=== PATIENT | male | born 1965 | race Caucasian/White ===

== ENCOUNTER 2016-12-28 14:18 | Inpatient (IN) | payer BC ==
[~2016-12-28] VITALS: Ht 190.5 cm; Wt 124.5 kg
--- NOTE | ~2016-12-28 | PR ---
[place], [place] PROGRESS NOTE [id number] UN[facility] #: [id number] ROOM: 428 DOCTOR: ROSA HIGGINS MD BIRTHDATE: [birth year] DOS: 12/30/2016 OBJECTIVE: VITAL SIGNS: Blood pressure 114/67, heart rate of 64 beats per minute, breathing 20 times per minute, temperature 98.4 degrees Fahrenheit. GENERAL: Morbid obesity. Generalized weakness. HEENT AND NECK: Exam within normal limits. CARDIOVASCULAR SYSTEM: Heart rate is regular in rate and rhythm. S1 and S2 normally audible. LUNGS: Clear to auscultation. ABDOMEN: Soft, nontender. No obvious organomegaly. Bowel sounds are present. EXTREMITIES: Without significant cyanosis or edema. IMPRESSION: 1. The patient with acute upper gastrointestinal bleed with anastomotic ulcer at the site of gastric bypass surgery for weight loss. The patient is being treated with acid blockers. 2. Acute blood loss anemia, status post blood transfusion, hemoglobin is at 8.8 and is being monitored. 3. Chronic back pains. 4. The patient going for colonoscopy by Dr. Chan tomorrow for further evaluation. ROSA HIGIGNS MD CM:SOLEDAD 190 2 ROSA HIGGINS MD 12/31/16132 interface
--- NOTE | ~2016-12-28 | WRIGHTHP ---
[place], [place] PATIENT HISTORY AND PHYSICAL EXAM NAME: FREDDY BYRNE [facility] #: [id number] UNIT #: [id number] ROOM: 407 DOCTOR: ROSA HIGGINS MD BIRTHDATE: [birth year] DOS: 12/28/2016 HISTORY OF PRESENT ILLNESS: 1. The patient is a 51-year-old gentleman with a past medical history of morbid obesity with gastric bypass surgery in 2011. 2. History of cholecystectomy. The patient presented to [facility] with increasing lower abdominal pains for a few days and he also noticed black colored stools and the lower abdominal pains are chronic for him, but they were getting worse for last 4-5 days before he came to the hospital. The patient says the pains improve when he moves his bowels. No chest pain, no shortness of breath, no fever or chills. The patient says he has chronic history of vomiting off and on. The patient was taken for EGD by Dr. Chan this morning and he was found to have a large anastomotic ulcer, probable site of bleeding. The patient is still having lower abdominal pains that are making him uncomfortable and he also says he has a long history of hemorrhoids which he would like treated. No complaints of any chest pain, shortness of breath. No other GI or urinary symptoms. REVIEW OF SYSTEMS: LUNGS: No increasing shortness of breath or wheezing. GASTROINTESTINAL: Chronic constipation, chronic recurrent vomiting on daily basis, chronic constipation and chronic complains of hemorrhoids and pain with bowel movement. CARDIOVASCULAR SYSTEM: No palpitations or chest pains. SOCIAL HISTORY: Denies smoking cigarettes, alcohol and drug abuse. FAMILY HISTORY: Noncontributory. HOME MEDICATIONS: The patient was apparently not taking any medications at home. ALLERGIES: No known drug allergies. PHYSICAL EXAMINATION: GENERAL: The patient is obese. VITAL SIGNS: Blood pressure 101/63, heart rate of 68 beats per minute, breathing 20 times per minute, temperature 98 degrees Fahrenheit. HEENT AND NECK: Extraocular movements are intact. Sclerae are anicteric. Oral mucosa is moist and clean. No obvious facial weakness. Neck is supple without any lymphadenopathy. No thyromegaly. No JVD. No carotid arterial bruits. LUNGS: Clear to auscultation. No wheezing. No rhonchi. CARDIOVASCULAR SYSTEM: Heart rate is regular in rate and rhythm. S1 and S2 normally audible. No significant murmur or any other abnormal cardiac sounds. ABDOMEN: Obesity. EXTREMITIES: Without significant cyanosis or edema. Warm to touch. CENTRAL NERVOUS SYSTEM: Alert and oriented x 3. Cranial nerves II-XII are intact. Speech is normal. The patient is able to move all extremities. Normal muscle strength. Deep tendon reflexes are equal on both sides. Plantars were downgoing. [place], [place] PATIENT HISTORY AND PHYSICAL EXAM [id number] UNIT #: [id number] ROOM: [facility] DOCTOR: RONALDO CHOUDHARY,ROSA Adams BIRTHDATE: [birth year] LABORATORY DATA: Hemoglobin of 7.3 dropped from 8.8 at admission. Normal serum electrolytes, bilirubin, liver enzymes. IMPRESSION: 1. The patient with acute upper gastrointestinal bleed with a large anastomotic ulcer where he had gastric bypass surgery for weight loss. I will transfuse patient with 2 units of packed cells since he is dropping hemoglobin and continue to monitor his H and H. The patient is status post EGD this morning. 2. Acute over chronic low back pains and chronic constipation for which I will start him on laxatives. 3. Hemorrhoidal pains for which patient is being started on Anusol suppositories. 4. Progressive blood loss anemia with hemoglobin has dropped to 7.3 as compared to 8.8 at admission. I will transfuse him with 2 units of packed cells. ROSA HIGGINS MD CM:HISPHYS:PATIENT HISTORY AND PHYSICAL EXAMINATION [id number] ROSA HIGGINS MD 12/29/16 1115 interface
--- NOTE | ~2016-12-28 | O ---
[place], [place] OPERATIVE NOTE NAME: FREDDY BYRNE UNIT #: [id number] ROOM: 428 DOCTOR: LIDIA CHOUDHARYLOGAN BIRTHDATE: [birth year] DATE: 12/29/16 CHIEF COMPLAINT: The patient is a 51-year-old who was presented with chief complaint of epigastric abdominal pain, right lower quadrant pain. The patient with history of gastric bypass, anemia of severe degree, and drop in H and H to hemoglobin of 7 and hematocrit of 27 microcytic indices. PROCEDURE: Today's procedure part of investigation is panendoscopy. PREMEDICATION: Versed and Diprivan. SCOPE: Olympus forward-viewing gastroscope Q10 video. REPORT: After putting the patient in the left lateral position and after application of lubricant to the scope, the scope was introduced. Thereafter, under direct visualization, I advanced through the length of esophagus without difficulty. Small hiatal hernia was noticed. Gastric pouch was identified anastomotic site, status post gastric bypass was noticed on the small bowel portion of the anastomosis. There was a large scarred non-actively bleeding ulcer was identified. This was biopsied from the margin, photographed. The rest of the small bowel appears to be patent and benign. The patient extubated, tolerated procedure well. IMPRESSION: Large anastomotic site ulcer, status post biopsy, status post gastric bypass. PLAN AND DISCUSSION: We are going to proceed with Protonix 40 mg daily as an outpatient, and we are going to continue with Carafate 1 gram before meals and at bedtime meals. Labs and records have been reviewed. His CT scan of the abdomen has been reviewed. There is no acute pathology reported. The lung bases clear with liver normal. He is status post cholecystectomy, status post gastric bypass. Pancreas, spleen, adrenal gland all within normal limits. There is no bowel wall thickening, appendix not visualized. No inflammatory process. No fluids. Lymph nodes are not enlarged. This patient also is complaining of right lower quadrant pain. We will continue with his upper endoscopy findings management. On the other hand, we are going to keep in mind that he may need a colonoscopy for his right lower quadrant complaints as well. This is going to be addressed via colonoscopy. [place], [place] OPERATIVE NOTE NAME: FREDDY BYRNE UNIT #: [id number] ROOM: 428 DOCTOR: LOGAN MURILLO MD BIRTHDATE: [birth year] LOGAN MURILLO MD CM:OPRECORD:OPERATIVE NOTE 1419 [id number] LOGAN MURILLO MD 01/03/17 0920 EARL KU.R
--- NOTE | ~2016-12-28 | DS ---
[place], [place] DISCHARGE SUMMARY NAME: FREDDY BYRNE UNIT #: [id number] ROOM: 428 DOCTOR: ROSA HIGGINS MD BIRTHDATE: [birth year] DOS: 01/01/2017 EXPECTED DATE OF DISCHARGE: 01/01/2017. DISCHARGE DIAGNOSES: 1. Acute upper gastrointestinal bleed from anastomotic ulcer in the stomach related to previous gastric bypass surgery in 2011. 2. 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 3. Previous history of cholecystectomy. 4. Morbid obesity. 5. Chronic constipation. 6. History of hemorrhoids with chronic pain. HOSPITAL COURSE: The patient presented to the Emergency Department with complaints of lower abdominal pain for a few days and also noticed black colored stools which were getting worse for 4-5 days. The patient was found to have blood loss anemia and was given blood transfusion as well as taken for EGD and later on colonoscopy. The patient's EGD showed anastomotic ulcer at the gastric bypass surgery site and a biopsy was performed. Later on patient was taken for colonoscopy by Dr. Chan where rectal fold was found, but patient continues to have red blood in the stool now and continues to have lower abdominal and right lower quadrant pain. The patient's hemoglobin had improved after blood transfusion and staying stable around 8.6-9, but because of continued GI bleed I would like to transfer him to specialized GI surgeons at [facility] for further evaluation and management. The patient and his are agreeable. A CT of the abdomen and pelvis showed mild nonspecific mucosal thickening of the rectum, questionable proctitis and splenic enlargement. DISCHARGE MANAGEMENT: The patient on infusion with normal saline. He is also on Anusol-HC suppositories twice a day, Colace 200 mg a day, Carafate 1 gram a.c. and at bedtime, MiraLax 17 g twice a day, Protonix 40 mg IV twice a day, hydromorphone IV every 6 hours 1 mg p.r.n. for pain. [place], [place] DISCHARGE SUMMARY NAME: FREDDY BYRNE UNIT #: [id number] ROOM: 428 DOCTOR: ROSA HIGGINS MD BIRTHDATE: [birth year] ROSA HIGGINS MD CM:ANDREE 07 43 ROSA HIGGINS MD 01/01/171944 interface
--- NOTE | ~2016-12-28 | PN ---
[place], [place] PROGRESS NOTE [id number] UN[facility] #: [id number] ROOM: 428 DOCTOR: IZABELA HAYES MD BIRTHDATE: [birth year] DATE: 12/31/16 INTERVAL NOTE CHIEF COMPLAINT: "Morning." SUMMARY OF THE VISIT: The patient was interviewed or attempted to be interviewed as he was resting in a Dian chair in the dining area. He was rather somnolent on approach and I was able to awaken him enough for him to mouth the words morning, but he nodded back off into sleep thereafter. Nurses report that he had a horrible night, sundowning horribly, becoming verbally and physically aggressive requiring 2 p.r.n. interventions with intramuscular Ativan. The first intramuscular injection did little to nothing, but by the time he had the 2nd, it did decrease his agitation. Nurses report that he also tends to respond more favorably to women than he does to men and with men, he becomes much more confrontational and verbally and physically combative. This morning, my examination is limited due to the somnolence left over from the Ativan that he received last night. MENTAL STATUS: It is limited due to the fact that he is somewhat somnolent. He is at least alert and oriented to self. I could not assess much further because of that. PLAN: His valproic acid level is therapeutic at 93.4, so I will maintain the current level. I will go ahead and increase Exelon patch from 9.5 mg daily to 13.3 mg daily. His Namenda has been discontinued due to the possibility of it causing confusion, so I will continue to monitor for improvement. We will monitor to see if his sundowning continues to be problematic and if it does, we will address this accordingly with a medicine at night. He may require atypical antipsychotic to decrease the overall combativeness and at this point, I would strongly recommend the family that he is not placed at home, but rather placed into a long-term care facility to further monitor and assess his behavior. We will continue to engage him in individual and hummel milieu activity, returning to the least restrictive environment when stable. IZABELA HAYES MD CM:PNTRANS 0742 1416 IZABELA HAYES MD 01/03/17 1417 EARL KU.SHELBIR
--- NOTE | ~2016-12-28 | O ---
[place], [place] OPERATIVE NOTE NAME: FREDDY BYRNE UNIT #: [id number] ROOM: 428 DOCTOR: LOGAN MURILLO MD BIRTHDATE: [birth year] DOS: GASTROENDOSCOPIC REPORT INDICATIONS: A 51-year-old patient who has presented with chief complaint of GI bleed, undergoing investigation. The patient is status post gastric bypass with large anastomotic ulcer. The patient continued to have bleed and transfusion. He has been complaining of rectal bleed as well. Left lower quadrant pain. PROCEDURE: Today's procedure part of investigation is colonoscopy plus biopsy. PREMEDICATION: Versed and Diprivan. SCOPE: Olympus forward-viewing colonoscope 10L video. REPORT: After putting the patient in the left lateral position and after application of lubricant to rectal pouch and digital examination, the scope was introduced. Thereafter, under direct visualization, I advanced through the length of colon without difficulty. Base of the cecum explored, appendiceal orifice identified, and ileocecal valve was defined. GI reflection of the scope reveals stretched ulcerated rectal fold, which is a dentate fold. Photographed, biopsies from the tip of it was obtained. The patient extubated, tolerated the procedure well. IMPRESSION: Hypertrophied rectal fold with ulceration status post biopsy. PLAN AND DISCUSSION: This patient expects to have next couple of days some blood in his stool, is going to be advised not to be concerned about this. However, as far as management of the hypertrophic rectal fold, he may need transanal resection of this fold if it becomes nuisance concern for him. At the present time, Anusol-HC suppository one b.i.d. was reduced to overstretched size. Thank you very much indeed. Sincerely, [place], [place] OPERATIVE NOTE NAME: FREDDY BYRNE UNIT #: [id number] ROOM: 428 DOCTOR: LOGAN MURILLO MD BIRTHDATE: [birth year] LOGAN MURILLO MD CM:OPRECORD:OPERATIVE NOTE 1719 11 LOGAN MURILLO MD 12/31/16 213 interface
--- NOTE | ~2016-12-28 | CON ---
[place], [place] REPORT OF CONSULTATION NAME: FREDDY BYRNE UNIT #: [id number] ROOM: 428 DOCTOR: LOGAN MURILLO MD BIRTHDATE: [birth year] DOS: 12/28/2016 HISTORY OF PRESENT ILLNESS: A 51-year-old patient who presented with chief complaint of right lower quadrant pain, epigastric distress, history of gastric bypass, anemia, undergoing investigation. PAST MEDICAL HISTORY: Status post gastric bypass. PAST SURGICAL HISTORY: Status post cholecystectomy, colonoscopies, gastroscope, bypass, EGDs. SOCIAL HISTORY: Nonsmoker, nonalcohol consumer. FAMILY HISTORY: Noncontributory. ALLERGIES: No known. MEDICATIONS: List reviewed. REVIEW OF SYSTEMS: In general: HEENT: Denies double vision, blurred vision. RESPIRATORY: Denies shortness of breath. CARDIOVASCULAR: Denies chest pain. DIGESTIVE SYSTEM: Epigastric pain, right lower quadrant pain. PHYSICAL EXAMINATION: VITAL SIGNS: Stable. HEENT: Head normocephalic, nontraumatic. Mouth and buccal mucosa benign. NECK: Supple, no thyromegaly, no cervical lymphadenopathy. CHEST: Symmetric anatomy, equal expansion. No wheeze. No rhonchi. HEART: Normal sinus rhythm, no gallop, no murmur. ABDOMEN: Soft. No hepato-organomegaly. Bowel sounds present. EXTREMITIES: No cyanosis. No pedal edema. NEUROLOGIC: Alert, oriented to time, place and person. LABORATORY DATA: Reviewed. H and H of 8 and 33 and microcytic indices were identified. Repeat H and H dropped to 7 and 27, microcytic indices recognized. CT scan of the abdomen and pelvis was done. No acute inflammatory process or obstruction was seen. Urinalysis normal. Comprehensive metabolic panel: GFR greater than 60. BUN and creatinine 7 and 1.2 were noticed. Electrolytes are balanced. Liver function tests normal. Lipase normal. CBC differential was reassessed. IMPRESSION AND DISCUSSION: Status post gastric bypass. Status post drop in hemoglobin and hematocrit, microcytic indices, abdominal pain. We are going to organize endoscopic assessment of upper gastrointestinal tract, ruling out anastomotic ulcer. We are going to transfuse for the hemoglobin and hematocrit of 7 and 27, and we are going to reassess should the esophagogastroduodenoscopy not be productive as far as defining the pathology, then we are going to organize in future a colonoscopy. [place], [place] REPORT OF CONSULTATION NAME: FREDDY BYRNE UNIT #: [id number] ROOM: 428 DOCTOR: LIDIA CHOUDHARY,LOGAN BIRTHDATE: [birth year] LOGAN MURILLO MD CM:CONSTR:REPORT OF CONSULTATION 0742 12/29/16 1417 interface
--- NOTE | ~2016-12-28 | OP ---
[place], [place] OUTPATIENT NOTE NAME: FREDDY BYRNE [facility] #: [id number] UNIT #: [id number] ROOM: 428 DOCTOR: LIDIA CHOUDHARYLOGAN BIRTHDATE: [birth year] DATE: 12/29/16 CHIEF COMPLAINT: The patient is a 51-year-old who was presented with chief complaint of epigastric abdominal pain, right lower quadrant pain. The patient with history of gastric bypass, anemia of severe degree, and drop in H and H to hemoglobin of 7 and hematocrit of 27 microcytic indices. PROCEDURE: Today's procedure part of investigation is panendoscopy. PREMEDICATION: Versed and Diprivan. SCOPE: Olympus forward-viewing gastroscope Q10 video. REPORT: After putting the patient in the left lateral position and after application of lubricant to the scope, the scope was introduced. Thereafter, under direct visualization, I advanced through the length of esophagus without difficulty. Small hiatal hernia was noticed. Gastric pouch was identified anastomotic site, status post gastric bypass was noticed on the small bowel portion of the anastomosis. There was a large scarred non-actively bleeding ulcer was identified. This was biopsied from the margin, photographed. The rest of the small bowel appears to be patent and benign. The patient extubated, tolerated procedure well. IMPRESSION: Large anastomotic site ulcer, status post biopsy, status post gastric bypass. PLAN AND DISCUSSION: We are going to proceed with Protonix 40 mg daily as an outpatient, and we are going to continue with Carafate 1 gram before meals and at bedtime meals. Labs and records have been reviewed. His CT scan of the abdomen has been reviewed. There is no acute pathology reported. The lung bases clear with liver normal. He is status post cholecystectomy, status post gastric bypass. Pancreas, spleen, adrenal gland all within normal limits. There is no bowel wall thickening, appendix not visualized. No inflammatory process. No fluids. Lymph nodes are not enlarged. This patient also is complaining of right lower quadrant pain. We will continue with his upper endoscopy findings management. On the other hand, we are going to keep in mind that he may need a colonoscopy for his right lower quadrant complaints as well. This is going to be addressed via colonoscopy. [place], [place] OUTPATIENT NOTE NAME: FREDDY BYRNE UNIT #: [id number] ROOM: 428 DOCTOR: LOGAN MURILLO MD BIRTHDATE: [birth year] LOGAN MURILLO MD CM:OUTNOTE:OUTPATIENT NOTE 5 5 LOGAN MURILLO MD 01/03/17 0920 EARL KU.R
[~2016-12-28 14:18] MED LIST: MOTRIN800 MG PO; ULTRAM50 MG PO
[2016-12-28 15:01] VITALS: BP 136/86
[2016-12-28 16:00] VITALS: BP 115/63
[2016-12-28 16:14] LABS: BASO # 0.1 10*3/uL (0.0-0.1); EOS # 0.2 10*3/uL (0.0-0.4); EOS % 2.4 % (1.0-4.0); HEMOGLOBIN 8.8 g/dl (14.0-18.0); LYMPH # 1.7 10*3/uL (1.3-4.4); LYMPH % 24.5 % (27.0-41.0); MEAN CELL VOLUME 66.5 fl (80.0-94.0); MEAN CORPUSCULAR HGB 17.7 pg (27.0-31.0); MEAN CORPUSCULAR HGB CONC 26.7 g/dl (33.0-37.0); MEAN PLATELET VOLUME 8.7 fl (9.6-12.3); MONO # 0.5 10*3/uL (0.1-1.0); MONO % 7.3 % (3.0-9.0); NEUT # 4.5 10*3/uL (2.3-7.9); NEUT % 64.5 % (47.0-73.0); PLATELET COUNT AUTOMATED 408 10*3/uL (130-400); RED BLOOD COUNT 4.96 10*6/uL (4.50-5.90); RED CELL DISTRI WIDTH 16.3 % (0-14.5)
[2016-12-28 16:32] LABS: ALBUMIN 3.8 gm/dl (3.1-4.5); ALKALINE PHOSPHATASE 97 U/L (45-117); BILIRUBIN, TOTAL 0.4 mg/dl (0.2-1.0); BUN 7 mg/dl (7-24); CARBON DIOXIDE 27 mmol/L (21-32); CHLORIDE 108 mmol/L (98-107); EST GLOM FILT AFRICAN AMERICAN > 60 ml/min; GLUCOSE 90 mg/dL (65-99); POTASSIUM 3.9 mmol/L (3.5-5.1); SGOT/AST 11 IU/L (3-35); SGPT/ALT 12 U/L (12-78); SODIUM 142 mmol/L (136-145); TOTAL PROTEIN 7.7 gm/dL (6.4-8.2)
[2016-12-28 17:25] LABS: BILIRUBIN NEGATIVE (NEGATIVE); BLOOD NEGATIVE (NEGATIVE); CLARITY SL CLOUDY (CLEAR); COLOR YELLOW (YELLOW); GLUCOSE NEGATIVE (NEGATIVE); KETONE NEGATIVE (NEGATIVE); LEUKO ESTERASE NEGATIVE (NEGATIVE); NITRITE NEGATIVE (NEGATIVE); PROTEIN NEGATIVE (NEGATIVE); SPECIFIC GRAVITY 1.015 (1.005-1.030); UROBILINOGEN 0.2 E.U./dl (0.2-1.0)
[2016-12-28 17:33] LABS: BACTERIA TRACE; URINE REFLEX COMMENT NO (NO); WBC 0-2 wbc/hpf (0-5)
[2016-12-28 20:00] VITALS: BP 115/63
[2016-12-28 20:15] VITALS: BP 115/63
[2016-12-29] VITALS (15 sets, daily range): BP systolic 73–158; BP diastolic 31–82
[2016-12-29 06:59] LABS: BASO # 0.1 10*3/uL (0.0-0.1); EOS # 0.2 10*3/uL (0.0-0.4); EOS % 4.3 % (1.0-4.0); HEMATOCRIT 27.4 % (42.0-52.0); HEMOGLOBIN 7.3 g/dl (14.0-18.0); LYMPH # 1.7 10*3/uL (1.3-4.4); LYMPH % 35.5 % (27.0-41.0); MEAN CELL VOLUME 67.5 fl (80.0-94.0); MEAN CORPUSCULAR HGB CONC 26.6 g/dl (33.0-37.0); MEAN PLATELET VOLUME 8.3 fl (9.6-12.3); MONO # 0.4 10*3/uL (0.1-1.0); MONO % 8.7 % (3.0-9.0); NEUT # 2.4 10*3/uL (2.3-7.9); NEUT % 49.9 % (47.0-73.0); PLATELET COUNT AUTOMATED 292 10*3/uL (130-400); RED BLOOD COUNT 4.06 10*6/uL (4.50-5.90); RED CELL DISTRI WIDTH 16.2 % (0-14.5); WHITE BLOOD COUNT 4.8 10*3/uL (4.8-10.8)
[2016-12-30] VITALS: BP 132/75
[2016-12-30 06:47] LABS: BASO % 0.6 % (0.0-1.0); EOS # 0.4 10*3/uL (0.0-0.4); EOS % 7.5 % (1.0-4.0); HEMATOCRIT 30.8 % (42.0-52.0); HEMOGLOBIN 8.8 g/dl (14.0-18.0); LYMPH # 1.6 10*3/uL (1.3-4.4); LYMPH % 31.2 % (27.0-41.0); MEAN CELL VOLUME 68.8 fl (80.0-94.0); MEAN CORPUSCULAR HGB 19.6 pg (27.0-31.0); MEAN CORPUSCULAR HGB CONC 28.6 g/dl (33.0-37.0); MEAN PLATELET VOLUME 8.2 fl (9.6-12.3); MONO # 0.7 10*3/uL (0.1-1.0); MONO % 12.6 % (3.0-9.0); NEUT # 2.5 10*3/uL (2.3-7.9); NEUT % 47.9 % (47.0-73.0); PLATELET COUNT AUTOMATED 247 10*3/uL (130-400); RED BLOOD COUNT 4.48 10*6/uL (4.50-5.90); RED CELL DISTRI WIDTH 19.3 % (0-14.5); WHITE BLOOD COUNT 5.2 10*3/uL (4.8-10.8)
[2016-12-30 08:00] VITALS: BP 102/56
[2016-12-30 12:00] VITALS: BP 115/78
[2016-12-30 16:00] VITALS: BP 114/67
[2016-12-30 20:00] VITALS: BP 150/82
[2016-12-31] VITALS (11 sets, daily range): BP systolic 118–143; BP diastolic 79–95
[2016-12-31 06:09] LABS: BASO # 0.1 10*3/uL (0.0-0.1); EOS # 0.4 10*3/uL (0.0-0.4); EOS % 8.3 % (1.0-4.0); HEMATOCRIT 30.5 % (42.0-52.0); HEMOGLOBIN 8.6 g/dl (14.0-18.0); LYMPH # 1.5 10*3/uL (1.3-4.4); LYMPH % 29.3 % (27.0-41.0); MEAN CELL VOLUME 70.1 fl (80.0-94.0); MEAN CORPUSCULAR HGB 19.8 pg (27.0-31.0); MEAN CORPUSCULAR HGB CONC 28.2 g/dl (33.0-37.0); MEAN PLATELET VOLUME 8.6 fl (9.6-12.3); MONO # 0.6 10*3/uL (0.1-1.0); MONO % 11.4 % (3.0-9.0); NEUT # 2.6 10*3/uL (2.3-7.9); NEUT % 49.6 % (47.0-73.0); PLATELET COUNT AUTOMATED 261 10*3/uL (130-400); RED BLOOD COUNT 4.35 10*6/uL (4.50-5.90); RED CELL DISTRI WIDTH 19.4 % (0-14.5); WHITE BLOOD COUNT 5.2 10*3/uL (4.8-10.8)
[2017-01-01] VITALS: BP 130/77
[2017-01-01 08:00] VITALS: BP 131/85
[2017-01-01 12:00] VITALS: BP 122/88
[2017-01-01 14:24] LABS: HEMATOCRIT 31.4 % (42.0-52.0); HEMOGLOBIN 9.1 g/dl (14.0-18.0)
[2017-01-01 16:17] VITALS: BP 126/81
== END 2017-01-02 01:50 | disposition short-term general hospital (02) | DRG 378 ==
LOC: ED 14:18 → EDHOLD 18:42 → 4E 18:42
PROVIDERS: Internal Medicine; Registered Nurse
PROC: 30233N1 Transfusion of Nonautologous Red Blood Cells into Peripheral Vein, Percutaneous Approach (ICD-10-PCS; 2016-12-29)
PROC: 0DBP8ZX Excision of Rectum, Via Natural or Artificial Opening Endoscopic, Diagnostic (ICD-10-PCS; principal; 2016-12-31)
PROC: 0DB68ZX Excision of Stomach, Via Natural or Artificial Opening Endoscopic, Diagnostic (ICD-10-PCS; 2016-12-31)
DX: K28.0 Acute gastrojejunal ulcer with hemorrhage (principal); D62 Acute posthemorrhagic anemia; Z98.84 Bariatric surgery status; G89.29 Other chronic pain; M54.5 Low back pain; K59.09 Other constipation; Z90.49 Acquired absence of other specified parts of digestive tract; K62.89 Other specified diseases of anus and rectum; K44.9 Diaphragmatic hernia without obstruction or gangrene; Z68.34 Body mass index [BMI] 34.0-34.9, adult; E66.01 Morbid (severe) obesity due to excess calories

== ENCOUNTER → 2017-01-06 | Outpatient (CLI) | payer BC ==
[2017-01-06 12:33] LABS: HEMATOCRIT 37.5 % (42.0-52.0); HEMOGLOBIN 10.3 g/dl (14.0-18.0); MEAN CELL VOLUME 69.4 fl (80.0-94.0); MEAN CORPUSCULAR HGB 19.1 pg (27.0-31.0); MEAN CORPUSCULAR HGB CONC 27.5 g/dl (33.0-37.0); MEAN PLATELET VOLUME 9.8 fl (9.6-12.3); RED BLOOD COUNT 5.4 10*6/uL (4.50-5.90); RED CELL DISTRI WIDTH 20.7 % (0-14.5); WHITE BLOOD COUNT 5.2 10*3/uL (4.8-10.8)
[2017-01-06 13:06] LABS: ALKALINE PHOSPHATASE 89 U/L (45-117); BILIRUBIN, TOTAL 0.5 mg/dl (0.2-1.0); BUN 15 mg/dl (7-24); CARBON DIOXIDE 25 mmol/L (21-32); CHLORIDE 113 mmol/L (98-107); CHOLESTEROL 117 mg/dL (<200); EST GLOM FILT AFRICAN AMERICAN > 60 ml/min; GLUCOSE 89 mg/dL (65-99); HDL CHOLESTEROL 47 mg/dl (40-60); IRON 22 ug/dL (65-175); LDL CHOLESTEROL 52 mg/dL (9-159); SGOT/AST 18 IU/L (3-35); SGPT/ALT 16 U/L (12-78); SODIUM 145 mmol/L (136-145); TOTAL PROTEIN 7.8 gm/dL (6.4-8.2); TRIGLYCERIDES 90 mg/dl (<150); VLDL CHOLESTEROL 18 mg/dL (6-40)
[2017-01-06 13:51] LABS: VITAMIN D, 25-HYDROXY 14.7 ng/mL (30-100)
== END | disposition home or self-care (01) ==
LOC: LAB 11:56
PROVIDERS: Family Medicine
DX: Z12.5 Encounter for screening for malignant neoplasm of prostate (principal); Z13.220 Encounter for screening for lipoid disorders; D64.9 Anemia, unspecified; E55.9 Vitamin D deficiency, unspecified; K92.2 Gastrointestinal hemorrhage, unspecified

== ENCOUNTER 2020-02-16 17:24 | Emergency (ER) | payer SELFPAY ==
[~2020-02-16] VITALS: Ht 190.5 cm; Wt 118.4 kg
[2020-02-16 17:48] LABS: BASO # 0.1 10*3/uL (0.0-0.1); BASO % 0.9 % (0.0-1.0); EOS # 0.1 10*3/uL (0.0-0.4); EOS % 2.5 % (1.0-4.0); HEMATOCRIT 31.3 % (42.0-52.0); LYMPH # 1.7 10*3/uL (1.3-4.4); LYMPH % 31.4 % (27.0-41.0); MEAN CORPUSCULAR HGB 19.1 pg (27.0-31.0); MEAN CORPUSCULAR HGB CONC 28.4 g/dl (33.0-37.0); MEAN PLATELET VOLUME 9.4 fl (9.6-12.3); MONO # 0.6 10*3/uL (0.1-1.0); PLATELET COUNT AUTOMATED 352 10*3/uL (130-400); RED BLOOD COUNT 4.67 10*6/uL (4.50-5.90); RED CELL DISTRI WIDTH 17.4 % (0-14.5); WHITE BLOOD COUNT 5.5 10*3/uL (4.8-10.8)
[2020-02-16 17:58] LABS: ACT PARTIAL THROMBO TIME 25.5 SECONDS (20.0-32.1); INTERNATIONAL NORM RATIO 1.1 (2.0-3.5)
[2020-02-16 18:04] LABS: ALBUMIN 3.9 gm/dl (3.1-4.5); ALKALINE PHOSPHATASE 96 U/L (45-117); BUN 11 mg/dl (7-24); CHLORIDE 111 mmol/L (98-107); CREATININE 1.09 mg/dL (0.70-1.30); POTASSIUM 3.3 mmol/L (3.5-5.1); SGOT/AST 14 IU/L (3-35); SGPT/ALT 19 U/L (12-78); SODIUM 140 mmol/L (136-145); TOTAL PROTEIN 7.6 gm/dL (6.4-8.2)
[2020-02-16 18:07] LABS: TROPONIN I < 0.015 ng/ml (<0.045)
[2020-02-16 18:21] LABS: ETHYL ALCOHOL < 3.0 mg/dl (<3); LIPASE 118 U/L (73-393)
[2020-02-16] MEDS ORDERED: HYDROXYZINE HCL25 MG PO (22:19)
[2020-02-16 22:30] VITALS: BP 108/68
== END 2020-02-16 23:00 | disposition home or self-care (01) ==
LOC: ED 17:24
PROVIDERS: Emergency Medicine; Physician Assistant
DX: F41.9 Anxiety disorder, unspecified (principal); R10.9 Unspecified abdominal pain; Z91.041 Radiographic dye allergy status

== ENCOUNTER 2020-08-19 06:53 | Emergency (ER) | payer OTHER ==
[~2020-08-19] VITALS: Ht 190.5 cm; Wt 121.6 kg
[~2020-08-19 06:53] MED LIST changes: +HYDROXYZINE HCL25 MG PO
[2020-08-19 07:18] VITALS: BP 130/62
[2020-08-19 07:41] LABS: BASO # 0.1 10*3/uL (0.0-0.1); BASO % 1.4 % (0.0-1.0); EOS # 0.3 10*3/uL (0.0-0.4); EOS % 5.7 % (1.0-4.0); LYMPH # 1.3 10*3/uL (1.3-4.4); LYMPH % 25.5 % (27.0-41.0); MEAN CELL VOLUME 65.2 fl (80.0-94.0); MEAN CORPUSCULAR HGB 17.8 pg (27.0-31.0); MEAN CORPUSCULAR HGB CONC 27.3 g/dl (33.0-37.0); MEAN PLATELET VOLUME 8.7 fl (9.6-12.3); MONO # 0.5 10*3/uL (0.1-1.0); MONO % 9.1 % (3.0-9.0); NEUT # 2.9 10*3/uL (2.3-7.9); NEUT % 58.1 % (47.0-73.0); PLATELET COUNT AUTOMATED 338 10*3/uL (130-400); RED BLOOD COUNT 5.06 10*6/uL (4.50-5.90); WHITE BLOOD COUNT 5.1 10*3/uL (4.8-10.8)
[2020-08-19 07:51] LABS: ACT PARTIAL THROMBO TIME 24.5 SECONDS (20.0-32.1)
[2020-08-19 07:56] LABS: ALBUMIN 3.5 gm/dl (3.1-4.5); ALKALINE PHOSPHATASE 87 U/L (45-117); BUN 15 mg/dl (7-24); CHLORIDE 112 mmol/L (98-107); CREATININE 0.89 mg/dL (0.70-1.30); LIPASE 136 U/L (73-393); POTASSIUM 4.1 mmol/L (3.5-5.1); SGOT/AST 11 IU/L (3-35); SGPT/ALT 14 U/L (12-78); SODIUM 142 mmol/L (136-145); TOTAL PROTEIN 7.2 gm/dL (6.4-8.2)
[2020-08-19 07:58] LABS: TROPONIN I < 0.015 ng/ml (<0.045)
[2020-08-19 08:55] LABS: BILIRUBIN Negative (Negative); BLOOD Negative (Negative); CLARITY Clear (Clear); COLOR Yellow (Yellow); GLUCOSE Negative (Negative); KETONE Negative (Negative); LEUKO ESTERASE Negative (Negative); NITRITE Negative (Negative)
[2020-08-19] MEDS ORDERED: FLOMAX0.4 MG PO (09:27)
[2020-08-19] MEDS ORDERED: NORCO 5-325 TA1 EACH PO (09:27)
[2020-08-19] MEDS ORDERED: ZOFRAN4 MG PO (09:27)
[2020-08-19 09:31] LABS: BACTERIA TRACE; MUCOUS TRACE
== END 2020-08-19 09:52 | disposition home or self-care (01) ==
LOC: ED 06:53
PROVIDERS: Family Medicine
DX: N20.0 Calculus of kidney (principal); Z98.84 Bariatric surgery status; Z90.49 Acquired absence of other specified parts of digestive tract; Z91.041 Radiographic dye allergy status; Z79.899 Other long term (current) drug therapy; Z98.61 Coronary angioplasty status

== ENCOUNTER → 2022-06-07 | Outpatient (CLI) | payer BC ==
[~2022-06-07] MED LIST changes: +FLOMAX0.4 MG PO; +NORCO 5-325 TA1 EACH PO; +ZOFRAN4 MG PO
== END | disposition home or self-care (01) ==
LOC: RAD 10:41
PROVIDERS: ATTEND Family Medicine
DX: M47.816 Spondylosis without myelopathy or radiculopathy, lumbar region (principal); M47.812 Spondylosis without myelopathy or radiculopathy, cervical region; R10.31 Right lower quadrant pain

== ENCOUNTER → 2022-10-16 | Outpatient (CLI) | payer BC | END | disposition home or self-care (01) | LOC: LAB 09:18 | PROVIDERS: ATTEND Family Medicine | DX: E34.9 Endocrine disorder, unspecified (principal) ==

== ENCOUNTER 2023-08-05 08:54 | Emergency (ER) | payer BC ==
[~2023-08-05] VITALS: Ht 190.5 cm; Wt 112.0 kg
[2023-08-05 09:05] VITALS: BP 122/81
== END 2023-08-05 11:24 | disposition home or self-care (01) ==
LOC: ED 08:54
DX: M75.02 Adhesive capsulitis of left shoulder (principal); Z91.041 Radiographic dye allergy status; Z90.49 Acquired absence of other specified parts of digestive tract; Z98.890 Other specified postprocedural states; Z95.5 Presence of coronary angioplasty implant and graft